=== PATIENT | female | born 1975 | race Asian ===

== ENCOUNTER 2017-05-27 07:22 | Day surgery (SDC) | payer OTHER ==
[~2017-05-27] VITALS: Ht 160 cm; Wt 55.0 kg
[2017-05-27] VITALS (8 sets, daily range): BP systolic 107–139; BP diastolic 63–76; PULSE 70–100; RESP 15–18; Ht 160 cm; Wt 55.0 kg
[~2017-05-27 07:22] MED LIST: GLYCOPYRROLATE 0.4 MG INJ ONE; NEOSTIGMINE 3 MG/3 ML SYRINGE ONE
[2017-05-27] MEDS ORDERED: SOD CHLORIDE 0.9% 1,000 ML IV ONE (09:30)
[2017-05-27] MEDS ORDERED: CEFAZOLIN 2 GM/50 ML (PMX) 50 ML IVPB ONE (09:30)
[2017-05-27] MEDS ORDERED: AMLO5TAB4 PO (10:13)
[2017-05-27] MEDS ORDERED: LOSA25TA5 PO (10:13)
[2017-05-27] MEDS ORDERED: CLON-379 PO (10:13)
[2017-05-27] MEDS ORDERED: METOCLOPRAMIDE 10 MG INJ IV PRN (11:00)
[2017-05-27] MEDS ORDERED: HYDROmorphONE (0.2 MG/ML) 10ML SYG IV PRN ×2 (11:00)
[2017-05-27] MEDS ORDERED: ONDANSETRON 4 MG INJ IV PRN (11:00)
[2017-05-27] MEDS ORDERED: FENTAnyl 50 MCG/ML VIAL IV PRN ×2 (11:00)
[2017-05-27] MEDS ORDERED: OXYCODONE/ACETAMINOPHEN (5/325) TAB PO PRN (11:00)
[2017-05-27] MEDS ORDERED: MEPERIDINE 25 MG INJ IV PRN (11:00)
[2017-05-27] MEDS ORDERED: DIPHENHYDRAMINE 50 MG INJ IV PRN (11:00)
[2017-05-27] MEDS ORDERED: BUPIVACAINE 0.25% (MPF) 30 ML INJ ONE (11:38)
[2017-05-27] MEDS ORDERED: LIDOCAINE 2% (MDV) 20 ML INJ ONE (11:39)
[2017-05-27] MEDS ORDERED: BUPIVACAINE 0.5% (SDV) 30 ML INJ ONE (11:39)
[2017-05-27] MEDS ORDERED: FENTAnyl 50 MCG/ML VIAL ONE (11:55)
[2017-05-27] MEDS ORDERED: PROPOFOL 20 ML ONE (12:06)
[2017-05-27] MEDS ORDERED: CEFAZOLIN 1 GM INJ ONE (12:06)
[2017-05-27] MEDS ORDERED: SUCCINYLCHOLINE CHLORIDE 100 MG/5 ML SYG IV ONE (12:06)
[2017-05-27] MEDS ORDERED: LIDOCAINE 2% (SDV) 5 ML INJ ONE (12:06)
[2017-05-27] MEDS ORDERED: ROCURONIUM 50 MG INJ ONE (12:06)
[2017-05-27] MEDS ORDERED: HYDROCODONE/APAP (5/325) TAB PO ONE (13:00)
--- NOTE | 2017-05-27 13:00 | OPR ---
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 right needle localized partial mastectomy of right breast tumor at 7:00 clock position 4 cm incision and 5 cm mass 2. right needle localized breast biopsy 10:00 position 6 cm mass 3. localized adjacent tissue defect 20 sq cm 4. therapeutic injection of subcutaneous marcaine Surgeon: Aleksandar PORRAS Anesthesia Type: general Estimated Blood Loss: minimal Specimens right periareaolar inferior lateral breast tumor surgical markings single short superior, single long lateral, double long anterior right upper lateral breast mass Grafts/Implants: none Complications: no Indications This is a 41-year-old female with a right breast mass and right breast tumor she requires surgical excision of both. Risks alternatives benefits and percent were discussed the patient. Patient expresses understanding and consents to the operation. Procedure Description Patient is taken to the OR and prepped and draped in usual sterile fashion. Surgical timeout was performed. IV antibiotics are given. Radiographic imaging of the right breast with needle localization of both masses is reviewed prior to making incision. Radial incision is made in the right lateral inferior breast at the 7 o'clock position. Dissection cautery is taken down widely to the area of concern with the needle localization. The tissue was then excised en bloc with short superior long lateral double long anterior surgical markings. Same incision was then used to get to the right upper lateral breast mass with cautery. This area is excised en bloc inclusive of the needle localization. Due to the large tissue defect localized adjacent tissue transfer with these of skin flaps was performed multilayer closure with interrupted 3-0 Vicryl running 4-0 Monocryl. Therapeutic subcutaneous Marcaine is injected throughout the whole incision site. Dry dressings were applied Aleksandar PORRAS May 27, 2017 13:00
== END 2017-05-27 14:30 | disposition home or self-care (01) ==
LOC: SDS 07:22
PROVIDERS: ATTEND Surgery
DX: N60.21 Fibroadenosis of right breast (principal); N60.11 Diffuse cystic mastopathy of right breast; I10 Essential (primary) hypertension
CPT/HCPCS: 19301; 88307; J0690; J2710; J3010; Z7512; Z7610; J7999